=== PATIENT | male | born 1990 | race African-American/Black ===

== ENCOUNTER 2020-01-05 16:17 | Emergency (ER) | payer MEDICAID ==
[2020-01-05] MEDS ORDERED: hydrALAZINE 20 MG/ML SDV IVPUSH ONE (16:44)
--- NOTE | 2020-01-05 18:05 | EDM.PDOC ---
ED HPI GENERAL MEDICAL PROBLEM - General Chief Complaint: ENT Problem Stated Complaint: BLOODY NOSE, COUGHING UP BLOOD Time Seen by Provider: 01/05/20 16:30 Source of Information: Reports: Patient History Limitations: Reports: No Limitations - History of Present Illness INITIAL COMMENTS - FREE TEXT/NARRATIVE: Pt states he developed spontaneous nose bleed from the right nostril since this am no INGRAM , no blurred vision May stop then would restart has never had nose bleed Pt states he is not on blood thinner : no aspirin , ibuprofen or antigcoagulants Take 4 BP meds : states he has a bad heart BP high today Onset: Today Onset Date: 01/05/20 Onset Time: 09:00 Duration: Intermittent, Waxing/Waning Location: Reports: Head (right nostrils) Quality: Reports: Dull, Pressure Severity: Moderate Improves with: Reports: None Worsens with: Reports: None Context: Reports: Other (elevated BP) Associated Symptoms: Reports: No Other Symptoms. 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 Denies: Nose Pain, Rhinitis, Sinus Problem Respiratory: Reports: No Symptoms Cardiovascular: Reports: Blood Pressure Problem Endocrine: Reports: No Symptoms GI/Abdominal: Reports: No Symptoms : Reports: No Symptoms Musculoskeletal: Reports: No Symptoms Skin: Reports: No Symptoms Neurological: Denies: Dizziness, Headache Psychiatric: Reports: No Symptoms ED EXAM, ENT - Physical Exam Exam: See Below Exam Limited By: No Limitations General Appearance: Alert, WD/WN, No Apparent Distress Eye Exam: Bilateral Eye: EOMI Ears: Normal External Exam, Normal TMs Nose: Active Bleeding, Injected Turbinates Mouth/Throat: Other (blood tricking from posterior pharynx) Head: Atraumatic, Normocephalic Neck: Supple, Non-Tender Respiratory/Chest: Lungs Clear, Normal Breath Sounds Cardiovascular: Regular Rate, Rhythm Neurological: Alert, Oriented, CN II-XII Intact, Normal Cognition Psychiatric: Normal Affect, Normal Mood Course - Vital Signs Last Recorded V/S: Last Vital Signs Temp 36.6 C 01/05/20 19:30 Pulse 128 H 01/05/20 19:33 Resp 20 01/05/20 19:30 BP 181/120 H 01/05/20 19:33 Pulse Ox 100 01/05/20 19:30 - Orders/Labs/Meds Labs: Laboratory Tests 01/05/20 Range/Units 18:20 WBC 7.5 (4.5-12.0) X10-3/uL RBC 5.56 (4.30-5.75) x10(6)uL Hgb 15.5 (13.5-17.8) g/dL Hct 46.6 (30.0-51.3) % MCV 83.8 (80-96) fL MCH 27.9 (27.7-33.6) pg MCHC 33.2 (32.2-35.4) g/dL RDW 14.3 (11.5-15.5) % Plt Count 306 (125-369) X10(3)uL Meds: Medications Discontinued Medications Generic Name Dose Route Start Last Admin Trade Name Freq PRN Reason Stop Dose Admin Hydralazine HCl 20 mg 01/05/20 16:44 01/05/20 17:49 Apresoline IVPUSH 01/05/20 16:45 20 mg ONETIME ONE Administration Metoprolol Succinate 50 mg 01/05/20 19:23 01/05/20 19:33 Toprol Xl PO 01/05/20 19:24 50 mg ONETIME ONE Administration - Re-Assessments/Exams Free Text/Narrative Re-Assessment/Exam: 01/05/20 18:08 Exam done on right nostril : with nasal speculum , initially no bleed was noted, then shortly started bleeding Neosynephrine was sprayed into the nose, soaked in gauze and packed in the nose , bleed was controlled a bit , then 5.5 cm rhinorocket was inserted and cuff filled with 4cc of air . Pt tolerated it well then started bleed again minimal 01/05/20 19:29 hemostasis was maintianed , pt given hydralazine for elevated BP, this did decrease but not controlled Turns out he had not take metoprolol as he was supposed to pt was given a dose of that too Hemostasis was maintained before discharge dsicussed with patient need to get packing ( rhinorocket removed in 48 hrs ) He seemed to understand emphasized need to keep BP well controlled Departure - Departure Time of Disposition: 19:35 Disposition: Home, Self-Care 01 Condition: Fair Clinical Impression: Right-sided nosebleed, Acute posterior epistaxis, Acute anterior epistaxis - Discharge Information *PRESCRIPTION DRUG MONITORING PROGRAM REVIEWED*: Not Applicable *COPY OF PRESCRIPTION DRUG MONITORING REPORT IN PATIENT [place]: Not Applicable Instructions: Nosebleed, Adult, Nosebleed, [id number] Referrals: PCP,None [Primary Care Provider] - Forms: ED Department Discharge Additional Instructions: 1) Keep nose pack in for 48hrs But if it starts bleeding again , you need to return to the ER for replacement of packing 2) Keep blood pressure under control to avoid further bleeding Sepsis Event Note (ED) - Focused Exam Vital Signs: Vital Signs Temp Pulse Pulse Pulse Resp BP BP 01/05/20 19:33 128 H 181/120 H 01/05/20 19:30 36.6 C 128 H 20 01/05/20 19:06 118 H 18 175/109 H 01/05/20 18:31 124 H 16 184/106 H 01/05/20 18:19 122 H 16 177/112 H 01/05/20 18:01 123 H 18 166/98 H 01/05/20 17:56 116 H 16 170/106 H 01/05/20 16:17 36.2 C 116 H 16 169/119 H BP Pulse Ox 01/05/20 19:33 01/05/20 19:30 181/120 H 100 01/05/20 19:06 98 01/05/20 18:31 99 01/05/20 18:19 99 01/05/20 18:01 99 01/05/20 17:56 99 01/05/20 16:17 98
[2020-01-05] MEDS ORDERED: Metoprolol Succinate 50 MG Tab.ER PO ONE (19:23)
== END 2020-01-05 19:57 | disposition home or self-care (01) ==
LOC: FB.ED 16:17
DX: R04.0 Epistaxis (principal); Z91.018 Allergy to other foods; Z79.899 Other long term (current) drug therapy
CPT/HCPCS: 30903; 30905; 36415; 85027; 96374; 99283-25; A9270-GY; J0360